=== PATIENT | female | born 1995 | race Caucasian/White ===

== ENCOUNTER 2021-10-28 05:29 | Inpatient (IN) ==
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
[2021-10-28] MEDS ORDERED: LACTATED RINGER'S 1,000 ML IV SCH ×2 (05:30→06:00)
[2021-10-28 06:00] LABS: Basophils # (auto) 0.02 K/uL (0-0.2); Basophils % (auto) 0.2 %; Eosinophils # (auto) 0.14 K/uL (0-0.5); Eosinophils % (auto) 1.5 %; Hematocrit (blood only) 37.5 % (37-47); Hemoglobin 12.2 g/dL (12.0-16.0); Immature Granulocytes # (auto) 0.02 K/uL (0.00-0.02); Immature Granulocytes % (auto) 0.2 %; Lymphocytes # (auto) 3.22 K/uL (1.2-3.4); Lymphocytes % (auto) 34.2 %; Mean Corpuscular Hemoglobin 26.9 pg (25-34); Mean Corpuscular Volume 82.8 fL (80-100); Mean Platelet Volume 9.8 fL (7.4-10.4); Monocytes % (auto) 8.5 %; Neutrophils # (auto) 5.21 K/uL (1.4-6.5); Neutrophils % (auto) 55.4 %; Platelet Count 247 K/uL (130-400); RDW Coefficient of Variation 13.5 % (11.5-14.5); Red Blood Count 4.53 M/uL (4.2-5.4); White Blood Count 9.41 K/uL (4.8-10.8)
[2021-10-28] MEDS ORDERED: GENTAMICIN SULFATE 340 MG in DEXTROSE 5% 100 ML IV SCH (06:00)
[2021-10-28] MEDS ORDERED: ceFAZolin 2000MG 2,000 MG/15 ML SYR IV SCH (06:00)
[2021-10-28] MEDS ORDERED: CITRIC ACID/SODIUM CITRATE 15 ML UDC PO SCH (06:00)
[2021-10-28] MEDS ORDERED: CLINDAMYCIN 900 MG in DEXTROSE 5% 50 ML IV SCH (06:00)
[2021-10-28 06:12] LABS: Mean Corpuscular Hgb Conc 32.5 g/dL (32-36)
[2021-10-28] MEDS ORDERED: ONDANSETRON INJ 2 MG/ML 2 ML VIAL ONE (06:58)
[2021-10-28] MEDS ORDERED: MoRPHine SULFATE PF 1 MG/ML 10 ML AMP/VIAL ONE (07:01)
[2021-10-28] MEDS ORDERED: fentaNYL citrate 100 MCG/2 ML VIAL ONE ×2 (07:01→07:47)
[2021-10-28] MEDS ORDERED: GENTAMICIN CONSULT ACTIVE PRN (07:11)
[2021-10-28] MEDS ORDERED: GENTAMICIN SULFATE 470 MG in DEXTROSE 5% 100 ML IV SCH (07:30)
--- NOTE | 2021-10-28 07:33 | History & Physical Bridge Note ---
Date of Service October 28, 2021 History & Physical Bridge Note I have examined the patient, reviewed the History & Physical and in the interval since the performance of the History & Physical I have noted the following changes of clinical significance: no changes noted. Allergies re-reviewed, will use gent/clinda for antibx ppx. Anesthesia to use dilaudid in spinal as morphine is oxycodone derivative. Pt notes GI sensitivity to NSAIDs, thinks had this with toradol but believes she may have had it as well without issue.
[2021-10-28] MEDS ORDERED: HYDROmorphone INJ 2 MG/ML SYR/VIAL ONE (07:40)
[2021-10-28] MEDS ORDERED: LIDOCAINE 2% MPF LOCAL 5 ML VIAL INFIL ONE (08:49)
[2021-10-28] MEDS ORDERED: ePHEDrine sulfate 50 MG/ML SYR ONE (08:49)
[2021-10-28] MEDS ORDERED: OXYTOCIN 10 UNITS/ML 10ML VIAL ONE ×4 (08:49→09:13)
[2021-10-28] MEDS ORDERED: PHENYLEPHRINE 100MCG/ML 5ML SYR ONE (08:49)
--- NOTE | 2021-10-28 09:24 | Post Operative Brief Note ---
PG Immediate Post Op with CF Date of Surgery October 28, 2021 Pre & Post Diagnosis Operation Date: 10/28/21 07:30 Preop diagnosis: 1. Single intrauterine at 39 2/7 wga 2. A1GDM 3. Elective primary section Postop diagnosis: Same, delivered I identified the patient and participated in the time-out.: Yes Procedure Operation Date: 10/28/21 07:30 Primary low transverse section Surgeon Melly Enriquez MD Salesperson [employer] Accessories MD Kirk Estimated Blood Loss 650 Findings Consistent with Post-Op Diagnosis Normal appearing uterus, bilateral fallopian tubes, ovaries. There was a <1cm area of discoloration noted superior to hysterotomy, hemostatic. Viable male infant weighing 9lb 14oz with APGARs of 8 and 9 at 1 and 5 minutes, respectively Specimens Specimen Description: A. Placenta - hold B. Cord Blood Drains Grayson Catheter Anesthesia Type Spinal Complications none Disposition Accompanied Patient To Recovery: Yes Disposition: L&D
--- NOTE | 2021-10-28 09:35 | Operative Report ---
PG Post Operative Report Pre & Post Diagnosis Operation Date: 10/28/21 07:30 Preop diagnosis: 1. Single intrauterine at 39 2/7 wga 2. A1GDM 3. Elective primary section Postop diagnosis: Same, delivered I identified the patient and participated in the time-out.: Yes Procedure Operation Date: 10/28/21 07:30 Primary low transverse section Surgeon Melly Enriquez MD Parts Delivery Driver MD Kirk Estimated Blood Loss 650 Findings Consistent with Post-Op Diagnosis Normal appearing uterus, bilateral fallopian tubes, ovaries. There was a <1cm area of discoloration noted superior to hysterotomy, hemostatic. Viable male weighing 9lb 14oz with APGARs of 8 and 9 at 1 and 5 minutes, respectively Fluids 1500ml crystalloid, 100ml urine output by soria catheter Specimens A. Placenta - hold B. Cord Blood Drains Soria catheter Anesthesia Type Spinal Complications none Disposition Accompanied Patient To Recovery: Yes Disposition: L&D Indications 26 y/o at 39 2/7 wga presents for elective primary section. complicated by A1GDM, normal BG on admission today. Description of Procedure The patient was taken to the operating room after consents were ensured. The patient was properly identified. Spinal anesthesia was obtained without difficulty. The patient was placed in a dorsal supine position with left lateral tilt, then prepped and draped in normal sterile fashion. Surgical time out was performed. Gentamicin/clindamycin were given for antibiotic prophylaxis. Anesthesia was tested to ensure adequate surgical levels. Pfannenstiel skin incision was performed and carried down to the underlying fascia. The fascia was then nicked in the midline and extended laterally with pickups and Crisostomo scissors. Superior portion of the fascia was grasped with Kochers x2 and elevated off the underlying rectus muscles using blunt dissection and scissors. Inferior portion of the fascia was then grasped with Iggy clamps x2 and also elevated off the underlying muscles with blunt dissection. Midline was identified. The peritoneum was then entered and extended to provide adequate room for delivery of baby. The hand was inserted into the abdomen, uterus was noted to be clear of adhesions. Bladder blade was inserted, bladder flap was created in the usual fashion. A low transverse uterine incision was made in the uterus and extended bluntly in a superior to inferior fashion. Amniotomy was made with clear fluid at the time of rupture. head was grasped and elevated through the hysterotomy in an atraumatic fashion. The baby delivered in MAGEN position, loose nuchal cord was reduced. Remainder of the body delivered without incident. Nose and mouth were bulb suctioned on the surgical field. The cord was double clamped and cut, baby was handed off to awaiting pediatrics staff. Cord segment and blood were obtained. Placenta was then expressed from the uterus. The uterus was exteriorized. Several passes were made inside the uterus to remove the remaining membranes. Attention was then turned to the hysterotomy, which was then closed with a running locked suture of 0 Vicryl on a CTX needle. An imbricating layer was then performed using 0-Monocryl. There was noted to be good hemostasis. The posterior cul-de-sac was then inspected and cleaned of clot and debris. The hysterotomy was again inspected and noted to be hemostatic. The uterus was returned to the abdomen. The right and left pericolic gutters were cleaned of all clot and debris. The hysterotomy was again noted to be hemostatic. Space of Retzius was noted to be hemostatic. The fascia was then closed with a running suture of 0 Vicryl on a CT1 needle. Subcutaneous tissue was copiously irrigated and noted to be hemostatic. Subcutaneous tissue was re-approximated using 2-0 plain gut. The skin was then closed with a running suture of 3-0 Monocryl in a subcuticular fashion. At termination of the procedure, the fundal pressure was applied and a moderate amount of lochia was expressed. Pressure dressing was applied to the patient. She tolerated the procedure well. All sponge, needle, instrument counts were correct x 2. I attest to the content of the Intraoperative Record and any orders documented therein. Any exceptions are noted below. OB Procedure Charges 09714
[2021-10-28] MEDS ORDERED: KETOROLAC 30 MG/ML VIAL IV PRN (09:40)
[2021-10-28] MEDS ORDERED: ACETAMINOPHEN 1000 MG/100 ML IV IV PRN (09:40)
[2021-10-28] MEDS ORDERED: HYDROmorphone INJ 0.5 MG/0.5 ML SYR IV PRN (09:40)
[2021-10-28] MEDS ORDERED: diphenhydrAMINE 50 MG/ML VIAL IV PRN ×2 (09:40→12:17)
[2021-10-28] MEDS ORDERED: ONDANSETRON INJ 2 MG/ML 2 ML VIAL IV PRN ×2 (09:40→12:17)
[2021-10-28] MEDS ORDERED: NALOXONE HCL 0.08 MG in SYRINGE 1.8 ML IV PRN (09:40)
[2021-10-28] MEDS ORDERED: NALOXONE HCL 0.4 MG/1 ML VIAL/CARP IV PRN (09:40)
[2021-10-28] MEDS ORDERED: ePHEDrine sulfate 50 MG/ML AMP IV PRN (09:40)
[2021-10-28] MEDS ORDERED: LACTATED RINGER'S 500 ML IV PRN (09:40)
[2021-10-28] MEDS ORDERED: NALOXONE HCL 1 MG in SODIUM CHLORIDE 0.9% 1000ML 1,000 ML IV PRN (09:40)
[2021-10-28] MEDS ORDERED: NALBUPHINE HCL INJ 10 MG/ML AMP IV PRN (09:40)
[2021-10-28] MEDS ORDERED: DC INTRASPINAL MORPHINE SCH (09:45)
[2021-10-28] MEDS ORDERED: SODIUM CHLORIDE 0.9% 1000ML 1,000 ML IV SCH (09:45)
[2021-10-28] MEDS ORDERED: NO NARCOTICS OR SEDATIVES SCH (09:45)
--- NOTE | 2021-10-28 10:20 | Anesthesiology Progress Note ---
Date of Service October 28, 2021 Anesthesia Post Procedure Vital Signs Vital Signs: Temp Pulse Resp BP Pulse Ox 10/28/21 10:18 89 96 10/28/21 10:13 88 96 10/28/21 10:08 85 113/60 97 10/28/21 10:03 91 H 96 10/28/21 09:58 89 96 10/28/21 09:53 94 H 109/55 L 96 10/28/21 09:48 94 H 98 10/28/21 09:47 86 126/62 10/28/21 09:43 83 97 10/28/21 09:42 86 113/63 10/28/21 09:38 91 H 97 10/28/21 09:37 85 111/63 10/28/21 09:33 88 98 10/28/21 09:32 89 110/64 10/28/21 09:28 89 98 10/28/21 09:27 86 118/65 10/28/21 07:05 36.9 C 20 10/28/21 07:04 96 H 136/82 10/28/21 05:40 36.8 C 18 10/28/21 05:38 125 H 130/86 Transfer of Care Handoff Completed per policy Notes Mental Status: alert / awake / arousable and participated in evaluation Nausea / Vomiting: adequately controlled Pain: adequately controlled Airway Patency, RR, SpO2: stable & adequate BP & HR: stable & adequate Hydration State: stable & adequate Neuraxial Anesthesia: was administered and sensory block is resolving Anesthetic Complications: no major complications apparent and Pt Satisfied with anesthetic care
[2021-10-28] MEDS ORDERED: diphenhydrAMINE Capsule 25 MG CAP PO PRN (12:17)
[2021-10-28] MEDS ORDERED: MAGNESIUM HYDROXIDE SUSP 30 ML UDC PO PRN (12:17)
[2021-10-28] MEDS ORDERED: BENZOCAINE 20% AER SPR 82.5 GM CAN EXT PRN (12:17)
[2021-10-28] MEDS ORDERED: SENNA 8.6 MG TAB PO PRN (12:17)
[2021-10-28] MEDS ORDERED: IBUPROFEN 600 MG TAB PO PRN (12:17)
[2021-10-28] MEDS ORDERED: HYDROCORTISONE ACETATE 25 MG SUPP PR PRN (12:17)
[2021-10-28] MEDS ORDERED: DIPHTHERIA/TETANUS/PERTUSSIS 0.5 ML SYR/VIAL IM ONE (12:17)
[2021-10-28] MEDS ORDERED: PROMETHAZINE HCL 25 MG in SODIUM CHLORIDE 0.9% 50 ML IV PRN (12:17)
[2021-10-28] MEDS ORDERED: oxyCODONE/ACETAMINOPHEN 5mg/325mg TAB PO PRN (12:17)
[2021-10-28] MEDS ORDERED: OXYTOCIN 10 UNITS in LACTATED RINGER'S 1,000 ML IV SCH (13:00)
[2021-10-28] MEDS ORDERED: OXYTOCIN 20 UNITS in LACTATED RINGER'S 1,000 ML IV SCH (13:00)
[2021-10-28] MEDS ORDERED: ONDANSETRON INJ 2 MG/ML 2 ML VIAL IV ONE (14:23)
[2021-10-28] MEDS: SIMETHICONE 80 MG CHEW PO SCH ×3 (15:26→22:48)
[2021-10-28] MEDS: LACTATED RINGER'S 1,000 ML IV SCH ×2 (15:27→21:19)
[2021-10-28] MEDS: HYDROmorphone INJ 2 MG/ML SYR/VIAL IT STA ×2 (15:31→15:32)
[2021-10-28] MEDS: DOCUSATE SODIUM 100 MG CAP PO SCH (22:49)
[2021-10-29] MEDS ORDERED: HYDROCODONE/ACETAMOPHEN 5/325MG TAB PO PRN (03:42)
[2021-10-29 06:14] LABS: Basophils # (auto) 0.02 K/uL (0-0.2); Basophils % (auto) 0.2 %; Eosinophils # (auto) 0.08 K/uL (0-0.5); Eosinophils % (auto) 0.9 %; Hematocrit (blood only) 32.6 % (37-47); Hemoglobin 10.9 g/dL (12.0-16.0); Lymphocytes # (auto) 2.11 K/uL (1.2-3.4); Lymphocytes % (auto) 23.5 %; Mean Corpuscular Hemoglobin 27.3 pg (25-34); Mean Corpuscular Hgb Conc 33.4 g/dL (32-36); Mean Corpuscular Volume 81.5 fL (80-100); Mean Platelet Volume 9.6 fL (7.4-10.4); Monocytes # (auto) 0.74 K/uL (0.11-0.59); Monocytes % (auto) 8.3 %; Neutrophils # (auto) 6.01 K/uL (1.4-6.5); Neutrophils % (auto) 67.1 %; Platelet Count 230 K/uL (130-400); RDW Coefficient of Variation 13.4 % (11.5-14.5); RDW Standard Deviation 40.2 fL (36.4-46.3); White Blood Count 8.96 K/uL (4.8-10.8)
--- NOTE | 2021-10-29 07:38 | Obstetrical Progress Note ---
Date of Service <Brittny James MD - Last Filed: 10/29/21 07:52> October 29, 2021 Assessment & Plan <Brittny James MD - Last Filed: 10/29/21 07:52> (1) Encounter for care and examination after delivery: POD 1: stable, routine postoperative management * patient voiding, ambulating without difficulty * pain well controlled on analgesia * tolerating regular diet * and bottlefeeding * anticipate d/c tomorrow <Melly Enriquez MD - Last Filed: 10/29/21 08:25> (1) Encounter for care and examination after delivery: Subjective <Brittny James MD - Last Filed: 10/29/21 07:52> Post Regina is a 26y/o female who is POD #1 following 39.2 WGA. She reports feeling well overall this morning. Some abdominal cramping pain well managed on analgesics. Voided into Grayson catheter until 4:30 AMhas not urinated on her own since. Tolerating meals overnight and is ambulating without dif ficulty. Has some persistent lochia with some improvement this morning. Currently breast and bottle feeding. Review of Systems Denies fever, chills, sweats Denies shortness of breath, difficulty breathing, chest pain, palpitations, chest pressure. Denies breast pain. Denies dysuria. Denies headache or changes in vision. Physical Exam <Brittny James MD - Last Filed: 10/29/21 07:52> General: Alert, oriented. No acute distress. Cardiac: Regular rate and rhythm, no murmurs/rubs/gallops. Respiratory: Clear to auscultation bilaterally a/p, no wheezes/rales/rhonchi. No increased work of breathing. Symmetrical chest rise. No respiratory distress. Abdomen: Soft, nontender, nondistended. Bowel sounds present. Uterus: Uterine fundus firm, palpable at the level of the umbilicus, to the left. Surgical scar clean and healing well. Lower Extremities: No lower extremity edema or swelling. No deep calf pain. Arlet's negative bilaterally. Results & Data ([facility]) <Brittny James MD - Last Filed: 10/29/21 07:52> Vital Signs (Past 12 Hours) Vital Signs Temp Pulse Resp BP Pulse Ox 10/29/21 03:45 36.7 C 111 H 16 99/58 L 95 10/29/21 02:30 16 95 10/29/21 01:30 94 H 94 10/29/21 00:30 16 95 10/28/21 23:30 36.7 C 101 H 18 117/76 94 10/28/21 22:30 18 95 10/28/21 21:30 16 97 10/28/21 20:30 18 96 <Melly Enriquez MD - Last Filed: 10/29/21 08:25> Co-Signing Physician Notes Resident Physician Supervision Note: I interviewed and examined the patient. Discussed with Dr. James and agree with findings and plan as documented in the note. Any exceptions or clarifications are listed here: POD1 s/p pLTCS, doing well. Just voided, meeting all milestones. VSS, exam benign, dressing c/d/i. Will get pt up and remove dressing in shower today. Continue rout pp care Documented By: Melly Enriquez MD Resident Activity Tracking <Brittny James MD - Last Filed: 10/29/21 07:52> Resident Involvement: Resident Care Provided Care Provided: Adult Hospital Medicine
[2021-10-29] MEDS: FERROUS SULFATE 325 MG TAB PO SCH (08:01)
[2021-10-29] MEDS: SIMETHICONE 80 MG CHEW PO SCH ×4 (08:01→20:06)
[2021-10-29] MEDS: PRENATAL VITAMIN 1 TAB PO SCH (08:01)
[2021-10-29] MEDS: DOCUSATE SODIUM 100 MG CAP PO SCH ×2 (08:02→20:07)
[2021-10-29] MEDS: ACETAMINOPHEN 325 MG TAB PO PRN ×3 (11:11→23:50)
[2021-10-29] MEDS ORDERED: bisacodyL 5 MG TABEC PO SCH (20:00)
[2021-10-30 06:40] LABS: Hematocrit (blood only) 34.2 % (37-47); Hemoglobin 11.5 g/dL (12.0-16.0)
--- NOTE | 2021-10-30 07:09 | Obstetrical Progress Note ---
Date of Service <Brittny James MD - Last Filed: 10/30/21 07:09> October 30, 2021 Assessment & Plan <Brittny James MD - Last Filed: 10/30/21 07:09> (1) Encounter for care and examination after delivery: POD 2: stable, routine postoperative management * patient voiding, ambulating without difficulty * pain well controlled on analgesiasent home with [place] prescription (patient allergic to Motrin) * tolerating regular diet * with bottle feeding supplementation. * anticipate d/c today * 6-week outpatient OB follow-up <Sweta Rios MD, FACOG - Last Filed: 10/30/21 07:12> (1) Encounter for care and examination after delivery: Day #:: 2 Subjective <Brittny James MD - Last Filed: 10/30/21 07:09> Post Regina is a 26y/o female who is POD #2 following at 39.2 WGA. She reports feeling well overall this morning. Abdominal cramping pain well managed on analgesics. Voiding well. Tolerating meals overnight and able to ambulate without assistance, or dizziness. Some persistent lochia with some improvement this morning. Currently breast feeding with bottle supplementation. Review of Systems Denies fever, chills, sweats Denies shortness of breath, difficulty breathing, chest pain, palpitations, chest pressure. Denies breast pain. Denies dysuria. Denies headache or changes in vision. Physical Exam <Brittny James MD - Last Filed: 10/30/21 07:09> General: Alert, oriented. No acute distress. Cardiac: Regular rate and rhythm, no murmurs/rubs/gallops. Respiratory: Clear to auscultation bilaterally a/p, no wheezes/rales/rhonchi. No increased work of breathing. Symmetrical chest rise. No respiratory distress. Abdomen: Soft, nontender, nondistended. Bowel sounds present. Uterus: Uterine fundus firm, palpable 2 cm below the umbilicus. Surgical scar clean and healing well. Lower Extremities: No lower extremity edema or swelling. No deep calf pain. Arlet's negative bilaterally. Results & Data ([facility]) <Brittny James MD - Last Filed: 10/30/21 07:09> Vital Signs (Past 12 Hours) Vital Signs Temp Pulse Resp BP 10/29/21 23:45 36.4 C L 90 18 115/75 <Sweta Rios MD, FACOG - Last Filed: 10/30/21 07:12> Co-Signing Physician Notes Resident Physician Supervision Note: I was present with Dr. James during the history and exam. I discussed the case with the resident and agree with the findings and plan as documented in the note. Any exceptions or clarifications are listed here: stable doing well, eating, voiding and ambul without issues. ff 2 down nt, incision c/d/i. ext nt calves. ppd/pod#2 desires dc home, bottle feeding and pumping. pain control good with tylenol alone, small amt norco sent to pharm after checking papdmp, no issues identified. instructions reviewed, f/u 6wk pp check. Documented By: Sweta Rios MD, FACOG Resident Activity Tracking <Brittny James MD - Last Filed: 10/30/21 07:09> Resident Involvement: Resident Care Provided Care Provided: Adult Hospital Medicine
[2021-10-30] MEDS: PRENATAL VITAMIN 1 TAB PO SCH (08:36)
[2021-10-30] MEDS: DOCUSATE SODIUM 100 MG CAP PO SCH (08:36)
[2021-10-30] MEDS: FERROUS SULFATE 325 MG TAB PO SCH (08:36)
[2021-10-30] MEDS: SIMETHICONE 80 MG CHEW PO SCH (08:36)
[2021-10-30] MEDS: ACETAMINOPHEN 325 MG TAB PO PRN (08:42)
[2021-10-30] MEDS ORDERED: bisacodyL 10 MG SUPP PR PRN (09:15)
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
== END 2021-10-30 11:44 | disposition home or self-care (01) | DRG 788 ==
LOC: 4S1 05:29 → EDSTATUS 07:30 → 4S2 12:19
DX: O09.893 Supervision of other high risk pregnancies, third trimester; Z79.899 Other long term (current) drug therapy; Z88.0 Allergy status to penicillin; Z3A.39 39 weeks gestation of pregnancy; Z37.0 Single live birth; Z88.8 Allergy status to other drugs, medicaments and biological substances; Z91.410 Personal history of adult physical and sexual abuse; Z88.5 Allergy status to narcotic agent; O69.81X0 Labor and delivery complicated by cord around neck, without compression, not applicable or unspecified; O99.62 Diseases of the digestive system complicating childbirth; K21.9 Gastro-esophageal reflux disease without esophagitis; K59.04 Chronic idiopathic constipation; O24.420 Gestational diabetes mellitus in childbirth, diet controlled

== ENCOUNTER 2024-02-26 05:34 | Inpatient (IN) ==
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
[2024-02-26] MEDS ORDERED: SODIUM CHLORIDE 0.9% 250 ML IV PRN (06:09)
[2024-02-26] MEDS: LACTATED RINGER'S 1,000 ML IV SCH (06:11)
[2024-02-26 06:18] LABS: Basophils # (auto) 0.03 K/uL (0.00-0.20); Basophils % (auto) 0.4 %; Eosinophils # (auto) 0.18 K/uL (0.00-0.50); Eosinophils % (auto) 2.1 %; Hematocrit (blood only) 33.6 % (37.0-47.0); Hemoglobin 10.7 g/dl (12.0-16.0); Immature Granulocytes # (auto) 0.04 K/uL (0.01-0.20); Immature Granulocytes % (auto) 0.5 %; Lymphocytes # (auto) 2.38 K/uL (1.20-3.40); Lymphocytes % (auto) 28.1 %; Mean Corpuscular Hgb Conc 31.8 g/dL (32.0-36.0); Mean Corpuscular Volume 78.5 fL (80.0-100.0); Mean Platelet Volume 10.3 fL (9.4-12.4); Monocytes # (auto) 0.73 K/uL (0.11-0.59); Monocytes % (auto) 8.6 %; Neutrophils # (auto) 5.11 K/uL (1.40-6.50); Neutrophils % (auto) 60.3 %; Platelet Count 263 K/uL (130-400); RDW Coefficient of Variation 15.2 % (11.5-14.5); RDW Standard Deviation 40.6 fL (36.4-46.3); Red Blood Count 4.28 M/uL (4.20-5.40); White Blood Count 8.47 K/ul (4.8-10.8)
[2024-02-26] MEDS ORDERED: MoRPHine SULFATE PF 1 MG/ML 10 ML AMP/VIAL ONE (07:07)
--- NOTE | 2024-02-26 07:20 | History & Physical Bridge Note ---
Date of Service February 26, 2024 History & Physical Bridge Note I have examined the patient, reviewed the History & Physical and in the interval since the performance of the History & Physical I have noted the following changes of clinical significance: no changes noted
[2024-02-26] MEDS: CITRIC ACID/SODIUM CITRATE 15 ML UDC PO SCH (07:22)
[2024-02-26] MEDS ORDERED: MoRPHine SULFATE 2 MG/ML CARP IV PRN (07:29)
[2024-02-26] MEDS ORDERED: MoRPHine SULFATE PF 1 MG/ML 10 ML AMP/VIAL INT SPINAL ONE (07:29)
[2024-02-26] MEDS ORDERED: ONDANSETRON INJ 2 MG/ML 2 ML VIAL IV PRN ×2 (07:29→08:59)
[2024-02-26] MEDS ORDERED: NALOXONE HCL 0.08 MG in SYRINGE 1.8 ML IV PRN (07:29)
[2024-02-26] MEDS ORDERED: diphenhydrAMINE 50 MG/ML VIAL IV PRN (07:29)
[2024-02-26] MEDS ORDERED: NALOXONE HCL 1 MG in SODIUM CHLORIDE 0.9% 1,000 ML IV PRN (07:29)
[2024-02-26] MEDS ORDERED: ePHEDrine sulfate 50 MG/ML AMP IV PRN (07:29)
[2024-02-26] MEDS ORDERED: DROPERIDOL 5 MG/2 ML VIAL IV PRN (07:29)
[2024-02-26] MEDS ORDERED: NALBUPHINE HCL 5 MG in SYRINGE 0 ML IV PRN (07:29)
[2024-02-26] MEDS ORDERED: LACTATED RINGER'S 500 ML IV PRN (07:29)
[2024-02-26] MEDS ORDERED: KETOROLAC 30 MG/ML VIAL IV PRN (07:29)
[2024-02-26] MEDS ORDERED: NALOXONE HCL 0.4 MG/1 ML VIAL/CARP IV PRN (07:29)
[2024-02-26] MEDS ORDERED: SODIUM CHLORIDE 0.9% 1,000 ML IV SCH (07:30)
[2024-02-26] MEDS ORDERED: DC INTRASPINAL MORPHINE SCH (07:30)
[2024-02-26] MEDS ORDERED: NO NARCOTICS OR SEDATIVES SCH (07:30)
[2024-02-26] MEDS: CLINDAMYCIN/D5W 900 MG/50 ML BAG IV SCH (07:40)
[2024-02-26] MEDS ORDERED: ePHEDrine sulfate 50 MG/5 ML SYR ONE (08:00)
[2024-02-26] MEDS ORDERED: OXYTOCIN 10 UNITS/ML VIAL ONE ×3 (08:00→08:36)
[2024-02-26] MEDS ORDERED: DEXAMETHASONE SOD INJ 4 MG/ML VIAL ONE (08:00)
[2024-02-26] MEDS ORDERED: PHENYLEPHRINE 100MCG/ML 10ML SYR IV ONE (08:00)
[2024-02-26] MEDS ORDERED: ONDANSETRON INJ 2 MG/ML 2 ML VIAL ONE (08:00)
[2024-02-26] MEDS ORDERED: METOCLOPRAMIDE HCL INJ 5 MG/ML 2 ML VIAL ONE (08:00)
--- NOTE | 2024-02-26 08:50 | Post Operative Brief Note ---
Immediate Post Op Note Date of Surgery February 26, 2024 Pre & Post Diagnosis Operation Date: 02/26/24 07:30 Pre-Op Diagnosis: intrauterine , desires repeat section Post-Op Diagnosis: same I identified the patient and participated in the time-out.: Yes Procedure Operation Date: 02/26/24 07:30 Actual Procedures p Section living male child at 0809(Bilateral) - Medina Oakley MD, FACOG Surgeon Medina Salamanca MD, FACOG Fashion Marketer Luz Marina Dove MD Quantitative Blood Loss (QBL) 440 Findings Consistent with Post-Op Diagnosis gravid uterus consistent with term . ovaries and tubes grossly normal Specimens Specimen Description: A: placenta-hold B: cord blood Drains Grayson Catheter (inserted after spinal without difficulty, draining clear yellow urine. Urine output to be monitored by anesthesia intraoperatively) Anesthesia Type Spinal Complications none Disposition Accompanied Patient To Recovery: Yes Disposition: L&D
[2024-02-26] MEDS ORDERED: SENNA 8.6 MG TAB PO PRN (08:59)
[2024-02-26] MEDS ORDERED: BENZOCAINE 20% SPRY 85 APPLN/85 GM CAN EXT PRN (08:59)
[2024-02-26] MEDS ORDERED: DIPHTHER/TETAN/PERTUS Vaccine (Tdap, Adol/Adult) 0.5mL IM ONE (08:59)
[2024-02-26] MEDS ORDERED: MAGNESIUM HYDROXIDE SUSP 30 ML UDC PO PRN (08:59)
[2024-02-26] MEDS ORDERED: IBUPROFEN 600 MG TAB PO PRN (08:59)
[2024-02-26] MEDS ORDERED: HYDROCORTISONE ACETATE 25 MG SUPP PR PRN (08:59)
[2024-02-26] MEDS ORDERED: LACTATED RINGER'S 1,000 ML IV SCH (09:00)
--- NOTE | 2024-02-26 10:49 | Anesthesiology Progress Note ---
Date of Service February 26, 2024 Anesthesia Post Procedure Vital Signs Vital Signs: Temp Pulse Resp BP Pulse Ox 02/26/24 10:45 88 96 02/26/24 10:44 93 H 119/61 02/26/24 10:40 91 H 96 02/26/24 10:35 87 97 02/26/24 10:34 90 115/57 L 02/26/24 10:30 20 02/26/24 10:30 82 96 02/26/24 10:25 83 96 02/26/24 10:24 81 120/57 L 02/26/24 10:20 84 96 02/26/24 10:15 90 96 02/26/24 10:14 81 118/58 L 02/26/24 10:10 90 96 02/26/24 10:05 90 96 02/26/24 10:04 82 116/60 02/26/24 10:00 18 02/26/24 10:00 18 02/26/24 10:00 77 96 02/26/24 09:58 89 93 02/26/24 09:55 79 96 02/26/24 09:54 77 109/57 L 02/26/24 09:50 18 02/26/24 09:50 88 96 02/26/24 09:45 85 96 02/26/24 09:44 90 120/59 L 02/26/24 09:40 18 02/26/24 09:39 86 96 02/26/24 09:34 96 02/26/24 09:34 87 02/26/24 09:34 85 124/58 L 02/26/24 09:30 18 02/26/24 09:29 91 H 96 02/26/24 09:24 84 116/55 L 96 02/26/24 09:20 16 02/26/24 09:19 93 H 96 02/26/24 09:14 96 02/26/24 09:14 95 H 02/26/24 09:14 95 H 118/57 L 02/26/24 09:10 16 02/26/24 09:09 83 97 02/26/24 09:04 97 02/26/24 09:04 85 02/26/24 09:04 82 118/58 L 02/26/24 09:00 36.7 C 16 02/26/24 08:59 86 96 02/26/24 08:54 82 115/56 L 95 02/26/24 07:09 37.0 C 83 18 119/72 02/26/24 05:44 36.9 C 18 02/26/24 05:40 101 H 132/89 Transfer of Care Handoff Completed per policy Notes Mental Status: alert / awake / arousable Patient Amnestic to Procedure: Yes Nausea / Vomiting: adequately controlled Pain: adequately controlled Airway Patency, RR, SpO2: stable & adequate BP & HR: stable & adequate Hydration State: stable & adequate Neuraxial Anesthesia: was administered and sensory block is resolving Anesthetic Complications: no major complications apparent
[2024-02-26] MEDS: OXYTOCIN 20 UNITS/LR 1,002 ML IV SCH (11:13)
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
[2024-02-26] MEDS: SIMETHICONE 80 MG CHEW PO SCH (17:50)
[2024-02-26] MEDS: DOCUSATE SODIUM 100 MG CAP PO SCH (21:12)
[2024-02-27] MEDS ORDERED: KETOROLAC 30 MG/ML VIAL IV PRN (01:57)
[2024-02-27] MEDS ORDERED: diphenhydrAMINE 50 MG/ML VIAL IV PRN (01:58)
[2024-02-27] MEDS ORDERED: MEPERIDINE HCL 50 MG/ML CARP IV PRN (01:58)
[2024-02-27] MEDS: diphenhydrAMINE Capsule 25 MG CAP PO PRN (03:28)
[2024-02-27 07:07] LABS: Basophils # (auto) 0.04 K/uL (0.00-0.20); Basophils % (auto) 0.3 %; Eosinophils # (auto) 0.09 K/uL (0.00-0.50); Eosinophils % (auto) 0.7 %; Hematocrit (blood only) 29.6 % (37.0-47.0); Hemoglobin 9.6 g/dl (12.0-16.0); Immature Granulocytes # (auto) 0.05 K/uL (0.01-0.20); Immature Granulocytes % (auto) 0.4 %; Lymphocytes % (auto) 26.6 %; Mean Corpuscular Hemoglobin 25.5 pg (25.0-34.0); Mean Corpuscular Hgb Conc 32.4 g/dL (32.0-36.0); Mean Corpuscular Volume 78.5 fL (80.0-100.0); Mean Platelet Volume 10.6 fL (9.4-12.4); Monocytes # (auto) 1.07 K/uL (0.11-0.59); Monocytes % (auto) 8.9 %; Neutrophils # (auto) 7.56 K/uL (1.40-6.50); Neutrophils % (auto) 63.1 %; Platelet Count 231 K/uL (130-400); RDW Coefficient of Variation 15.1 % (11.5-14.5); RDW Standard Deviation 41.2 fL (36.4-46.3); Red Blood Count 3.77 M/uL (4.20-5.40); White Blood Count 12.01 K/ul (4.8-10.8)
--- NOTE | 2024-02-27 07:43 | Obstetrical Progress Note ---
Date of Service <Alex Giron DO - Last Filed: 02/27/24 08:21> February 27, 2024 Assessment & Plan <Alex Giron DO - Last Filed: 02/27/24 08:21> (1) Encounter for assessment: Patient is PPD 1 s/p repeat LTCS and doing well - Eating well, voiding well, ambulating well - vitals reviewed and within normal limits - pain well controlled with analgesics - OOB, ambulation, diet progression as tolerated - Blood type: B+, GBS neg, rubella immune - Plan to discharge tomorrow - After discharge, 6 week follow up with OB visit type: exam and care immediately after delivery Qualified Code(s): Z39.0 - Encounter for care and examination of mother immediately after delivery <Jimenez Rios MD - Last Filed: 02/27/24 08:59> (1) Encounter for assessment: Subjective <Alex Giron DO - Last Filed: 02/27/24 08:21> 28 yo post-op day 1 s/p repeat LTCS Ambulation: ambulating normally Voiding: no voiding problems Passing Gas:: Yes Diet Tolerance:: regular diet Lochia:: Small Feeding Type:: bottle feeding and pumping Current Pain Level: 0/10 Resting comfortably this AM in NAD. Denies VENTURA, CP, SOB, N/V/D, LE pain/swelling. Physical Exam <Alex Giron DO - Last Filed: 02/27/24 08:21> General: patient resting comfortably, NAD, non-toxic in appearance, answers questions appropriately. Skin: warm, dry, intact HEENT: NC/AT, anicteric sclera, conjunctiva without injection, moist mucus membranes. Heart: +S1/S2, regular, no m/r/g Lungs: equal air entry bilaterally, no rales/rhonchi/wheezes Abd: +BS, soft, NT/ND, uterine fundus firm at umbilicus, caesarean incision - Ext: warm, no clubbing/cyanosis or edema, Arlet's neg. Neuro: nonfocal, speech intact, no facial droop, moving all extremities. Results & Data <Alex Giron DO - Last Filed: 02/27/24 08:21> Vital Signs (Past 12 Hours) Vital Signs Temp Pulse Resp BP Pulse Ox O2 Del Method 02/27/24 04:01 36.9 C 89 20 115/75 97 Room Air 02/27/24 02:05 18 98 02/27/24 01:01 16 96 02/27/24 00:00 20 97 02/26/24 23:30 36.7 C 89 18 113/73 97 Room Air 02/26/24 20:00 Room Air 02/26/24 20:00 18 97 Supervising Physician <Jimenez Rios MD - Last Filed: 02/27/24 08:59> Co-Signing Physician Notes Patient seen with resident and agree with the above findings and plan. Routine care Resident Activity Tracking <Alex Giron DO - Last Filed: 02/27/24 08:21> Resident Involvement: Resident Care Provided Care Provided: OB Delivery
[2024-02-27] MEDS: FERROUS SULFATE 325 MG TAB PO SCH (08:31)
[2024-02-27] MEDS: LINACLOTIDE 145 MCG CAPSULE PO SCH (08:31)
[2024-02-27] MEDS: PRENATAL VITAMIN 1 TAB PO SCH (12:54)
[2024-02-27] MEDS: PANTOprazole 40 MG TAB PO SCH (12:55)
[2024-02-27] MEDS: ACETAMINOPHEN 325 MG TAB PO PRN (20:43)
[2024-02-27] MEDS: bisacodyL 5 MG TABEC PO SCH (20:43)
[2024-02-28 06:29] LABS: Hematocrit (blood only) 32.7 % (37.0-47.0); Hemoglobin 10.5 g/dl (12.0-16.0)
--- NOTE | 2024-02-28 07:20 | Obstetrical Progress Note ---
Date of Service February 28, 2024 Assessment & Plan (1) Encounter for assessment: reaction to chlorprep used for C/S will start hydrocortisone 1% lotion to the area bid until resolved discharge to home with follow up in 6 weeks visit type: exam and care immediately after delivery Qualified Code(s): Z39.0 - Encounter for care and examination of mother immediately after delivery Subjective Ambulation: ambulating normally Voiding: no voiding problems Passing Gas:: Yes Diet Tolerance:: regular diet Lochia:: Moderate Feeding Type:: bottle feeding has itchy rash over abdomen where chloraprep was applied. has been taking Benadryl for the itching. Tylenol has helped incision pain Review of Systems All systems reviewed & are unremarkable except as noted in HPI & below Physical Exam Constitutional WD/WN, vitals as above Gastrointestinal (Abdomen) Inspection/Auscultation: + abdominal surgical incision (dry and intact) flat diffuse erythema well demarcated over abdomen where skin prep was applied Psychiatric A+Ox3, euthymic affect Genitourinary OB Exam Abdomen: + fundal height Fundus: + firm and + relation to umbilicus (2 below U) Results & Data Vital Signs (Past 12 Hours) Vital Signs Temp Pulse Resp BP Pulse Ox O2 Del Method 02/28/24 00:45 98.2 F 75 18 96/67 L 98 Room Air 02/27/24 20:30 Room Air 02/27/24 20:30 98.4 F 96 H 18 109/72 97 Room Air
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
[2024-02-28] MEDS: HYDROCORTISONE 1% CRM 30 GM TUBE EXT PRN (07:49)
[2024-02-28] MEDS ORDERED: bisacodyL 10 MG SUPP PR PRN (08:59)
== END 2024-02-28 11:30 | disposition home or self-care (01) | DRG 788 ==
LOC: 4S1 05:34 → EDSTATUS 09:00 → 4E1 11:41